=== PATIENT | female | born 1955 | race Caucasian/White ===

== ENCOUNTER 2017-04-09 05:26 | Emergency (ER) | payer OTHER ==
[~2017-04-09] VITALS: Ht 162.6 cm; Wt 62.6 kg
[2017-04-09] MEDS ORDERED: MONTELUKAST SOD10 M1 PO (06:05)
[2017-04-09] MEDS ORDERED: ZYRTEC10 M6 PO (06:06)
[2017-04-09] MEDS ORDERED: NEXIUM40 M1 PO (06:06)
[2017-04-09] MEDS ORDERED: PROAIR HFA8.5 GM INH (06:06)
--- NOTE | 2017-04-09 06:06 | ED GI/GU/ABDOMINAL COMPLAINT ---
See Addendum History of Present Illness General Chief Complaint: General Adult Stated Complaint: "PER PT I THINK I HAVE C DIFF" Source: patient Exam Limitations: no limitations Vital Signs & Intake/Output Vital Signs & Intake/Output Vital Signs Date Time Temp Pulse Resp B/P B/P Pulse O2 O2 Flow FiO2 Mean Ox Delivery Rate 04/09 0816 97.0 04/09 0754 97.0 04/09 0609 Room Air 04/09 0601 97.0 88 18 137/81 97 Room Air Allergies Coded Allergies: Penicillins (Intermediate, HIVES 04/09/17) Sulfa (Sulfonamide Antibiotics) (Intermediate, HIVES 04/09/17) cephalexin (From KEFLEX) (Intermediate, HIVES 04/09/17) epinephrine (Intermediate, HIGH HEARTRATR 04/09/17) erythromycin base (Intermediate, VOMITTING 04/09/17) latex (Intermediate, LOVE SKIN 04/09/17) codeine (Mild, INSOMNIA 04/09/17) levofloxacin (From LEVAQUIN) (Mild, GI UPSET 04/09/17) moxifloxacin (From AVELOX) (Mild, STOMACH PAINS 04/09/17) Triage Note: TRIAGE: PATIENT TO ER FROM HOME W/ GENERALIZED ABD CRAMPING X 3 DAYS W/ DIARRHEA, DENIES ANY RECENT ABX. PATIENT DENIES ANY N/V. STOOL SPECIMEN OBTAINED IN TRIAGE. Triage Nurses Notes Reviewed? yes ? n Is pt currently ? No Onset: Gradual Duration: day(s):, getting worse Timing: recent history Quality/Severity: cramping Location: epigastric, generalized abdomen Radiation: no radiation Activities at Onset: none Modifying Factors: Worsens With: defecating. Associated Symptoms: abdominal pain, diarrhea, nausea/vomiting HPI: 61 yo woman in prior good health, presents with 3-4 day history of copious watery diarrhea. "It was like I did a bowel clean out... the stool just keeps coming out." She notes nausea, but no diarrhea. "It feels just like when I had c.diff 20 years ago." She notes no fever, chills, vomiting, chest pain, dysuria, chest pain. She is otherwise well. (MANAV ROBIN,GOLDEN Delatorre) Reconcile Medications Albuterol Sulfate (Proair Hfa) 90 MCG HFA.AER.AD 2 PUF INH Q4-6 PRN PRN SOB ( Reported) Cetirizine HCl (Zyrtec) 10 MG CAPSULE 10 MG PO DAILY (Reported) Esomeprazole (Nexium) 40 MG CAPSULE.DR 20 MG PO DAILY PRN GERD (Reported) Metronidazole (Flagyl) 250 MG TABLET 1 TAB PO TID COLITIS Montelukast Sodium 10 MG TABLET 1 TAB PO DAILY (Reported) Rosuvastatin Calcium (Crestor) 20 MG TABLET 1 TAB PO DAILY CHOLESTEROL ( Reported) (ADELIA ROBIN,RADHA) Past History Travel History Traveled to [place] past 21 day No Medical History Any Pertinent Medical History? 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 No (MANAV ROBIN,GOLDEN Delatorre) Review of Systems Review of Systems Constitutional: Reports: no symptoms. EENTM: Reports: no symptoms. Respiratory: Reports: no symptoms. Cardiovascular: Reports: no symptoms. GI: Reports: no symptoms. Genitourinary: Reports: no symptoms. Musculoskeletal: Reports: no symptoms. Skin: Reports: no symptoms. Neurological/Psychological: Reports: no symptoms. Hematologic/Endocrine: Reports: no symptoms. Immunologic/Allergic: Reports: no symptoms. All Other Systems: Reviewed and Negative (MANAV ROBIN,GOLDEN Delatorre) Physical Exam Physical Exam General Appearance: well developed/nourished, mild distress Head: atraumatic, normal appearance Eyes: Bilateral: normal appearance. Ears, Nose, Throat, Mouth: hearing grossly normal Neck: normal inspection, supple, full range of motion, normal alignment Respiratory: normal breath sounds, chest non-tender, no respiratory distress, quiet respiration, lungs clear Cardiovascular: regular rate/rhythm Gastrointestinal: normal bowel sounds, soft, mild mid epigastric and ruq abdominal tenderness to palpation. Back: normal inspection, normal range of motion Extremities: normal range of motion Neurologic/Psych: no motor/sensory deficits, awake, alert, oriented x 3 Skin: intact, normal color, warm/dry Core Measures ACS in differential dx? No Severe Sepsis Present: No Septic Shock Present: No (GOLDEN EM MD) Progress Differential Diagnosis: appendicitis, cholecystitis, diverticulitis, gastritis, hepatitis Plan of Care: Orders Procedure Date/time Status LACTIC ACID 04/09 921 Active TROPONIN LEVEL 04/09 621 Complete LIPASE 04/09 621 Complete LACTIC ACID 04/09 621 Complete HEPATIC FUNCTION PANEL 04/09 621 Complete CBC WITHOUT DIFFERENTIAL 04/09 621 Complete BASIC METABOLIC PANEL 04/09 621 Complete AMYLASE 04/09 621 Complete EKG 04/09 621 Active CULTURE,STOOL 04/09 606 Active C.DIFFICILE 04/09 606 Active Laboratory Tests 04/09/17 0632: Anion Gap 8, Estimated GFR > 60, BUN/Creatinine Ratio 11.4, Glucose 100 H, Lactic Acid 1.0, Calcium 9.5, Total Bilirubin 0.4, Direct Bilirubin 0.2, AST 35, ALT 53 H, Alkaline Phosphatase 72, Troponin I 0.04, Total Protein 6.6, Albumin 3.8, Amylase 42, Lipase 51, CBC w Diff MAN DIFF ORDERED, RBC 4.63, MCV 87.3, MCH 28.7, RDW 13.0, MPV 7.7, Segmented Neutrophils 46, Band Neutrophils 2, Lymphocytes 30, Monocytes 19 H, Eosinophils 3, Platelet Estimate ADEQUATE, Hypochromic-Microcytic 1+, Poikilocytosis 1+, Ovalocytes 1+, PUBS MCHC 32.9 L, Fld Total RBCs Counted 100 Microbiology 04/09 623 STOOL: Clostridium difficile Toxin A & B - RECD 04/09 623 STOOL: Stool Culture - RECD 04/09/2017 8:33:13 AM CAT scan is consistent with colitis. Patient has submitted a stool sample. She is feeling much better after IV fluids and IV Tylenol. No episodes of blood or mucus in stool. History of C. difficile 20 years ago. We will start her on Flagyl and await culture results. She will follow-up with her doctor in the office and instructed to return to the ER if worse. (RADHA DELVALLE MD) Initial ED EKG: pending Hand-Off Endorsed To: RADHA DELVALLE MD Endorsed Time: 0700 Pending: CT, EKG, labs (GOLDEN EM MD) Diagnostic Imaging: Viewed by Me: CT Scan. Discussed w/RAD: CT Scan. Radiology Impression: PATIENT: KORINA MARKHAM PRESENT AGE: 61 PATIENT ACCOUNT NO: [id number] : 53 LOCATION: [facility] ORDERING PHYSICIAN: GOLDEN EM MD SERVICE DATE: 04/09/17 EXAM TYPE: CAT - CT ABD & PELVIS W/O IV CONTRAS EXAMINATION: CT ABDOMEN AND PELVIS WITHOUT CONTRAST CLINICAL INFORMATION: Abdominal pain, query colitis. COMPARISON: None TECHNIQUE: Multidetector volumetric imaging was performed from the superior aspect of the liver through the pubic symphysis. Sagittal and coronal reformatted images were obtained on the technologist's workstation. DLP: 268.27 mGy-cm FINDINGS: LUNG BASES: The visualized lung bases are unremarkable. LIVER, GALLBLADDER, AND BILIARY TREE: The liver is normal in size, shape, and attenuation. No focal hepatic lesion or biliary ductal dilatation is present. The gallbladder is unremarkable with no evidence of radiopaque gallstones, gallbladder wall thickening, or obvious pericholecystic inflammatory changes. PANCREAS: Unremarkable. SPLEEN: Unremarkable. ADRENAL GLANDS: Unremarkable. KIDNEYS AND URETERS: The kidneys are normal in size, shape, and attenuation. No hydronephrosis, hydroureter, or calculi seen. No perinephric stranding. BLADDER: Unremarkable. GASTROINTESTINAL TRACT: Colonic wall thickening and mild pericolonic soft tissue stranding is seen most notable in the ascending colon, hepatic flexure, transverse colon, splenic flexure and descending colon. Less appreciable changes are seen in the rectosigmoid colon. No evidence of extraluminal air or abscess or obvious perianal disease. Assessment slightly limited by the lack of intravenous contrast. The appendix is not well-defined but there are no changes to suggest appendicitis. There appears to be a second/ third portion duodenal diverticulum. This is difficult to evaluate without oral contrast. ABDOMINAL WALL: No significant hernia is appreciated. LYMPH NODES: Normal. Small normal-sized mesenteric lymph nodes are demonstrated. VASCULAR: Evaluation is limited by the lack of intravenous contrast. There is vascular calcification from atherosclerotic change. No evidence of aneurysm. PELVIC VISCERA: The uterus and adnexa are unremarkable. OSSEOUS STRUCTURES: Unremarkable. IMPRESSION: 1. Mild prominence of the colonic wall with pericolonic soft tissue stranding is compatible with the clinical history of colitis. This is difficult to evaluate without intravenous contrast. No evidence of pericolonic fluid collections or extraluminal gas. 2. Probable incidental duodenal diverticulum difficult to evaluate without oral contrast. DICTATED BY: ANTHONY BENAVIDES MD DATE/TIME DICTATED:04/09/17711 CAR DETAILER:QI DATE/TIME TRANSCRIBED:04/09/17711 CONFIDENTIAL, DO NOT COPY WITHOUT APPROPRIATE AUTHORIZATION. <Electronically signed in Other Vendor System> SIGNED BY: ANTHONY BENAVIDES MD 04/09/17723 (RADHA DELVALLE MD) Departure Departure Condition: Stable Referrals: MICHAEL ROBIN,XAUN Somers (PCP/Family) Departure Forms: Customer Survey General Discharge Information (MANAV ROBIN,GOLDEN Delatorre) Departure Time of Disposition: 830 Disposition: HOME OR SELF CARE Clinical Impression Primary Impression: Colitis Additional Instructions: Please take the Flagyl as directed. Prescription is at [facility] in [place]. Follow up with Dr. Chris in the office. Return to the ER for any changing or worsening symptoms specifically abdominal pain fever or chills. He will get a call back for any positive cultures. Prescriptions: Current Visit Scripts Metronidazole (Flagyl) 1 TAB PO TID #30 TAB (ADELIA ROBIN,RADHA)
[2017-04-09] MEDS ORDERED: CRESTOR20 M2 PO (06:07)
[2017-04-09 06:41] LABS: HEMATOCRIT 40.4 % (37-47); MEAN CORPUSCULAR HGB 28.7 PG (27.0-31.0); MEAN CORPUSCULAR HGB CONC 32.9 G/DL (33.0-37.0); MEAN CORPUSCULAR VOLUME 87.3 FL (81.0-99.0); MEAN PLATELET VOLUME 7.7 FL (7.4-10.4); PLATELET COUNT 196 /CUMM (130-400); RED BLOOD CELL CT 4.63 /CUMM (4.20-5.40); WHITE BLOOD CELL COUNT 5.3 /CUMM (4.8-10.8)
--- NOTE | 2017-04-09 07:24 | CT SCAN REPORT ---
EXAMINATION: CT ABDOMEN AND PELVIS WITHOUT CONTRAST CLINICAL INFORMATION: Abdominal pain, query colitis. COMPARISON: None TECHNIQUE: Multidetector volumetric imaging was performed from the superior aspect of the liver through the pubic symphysis. Sagittal and coronal reformatted images were obtained on the technologist's workstation. DLP: 268.27 mGy-cm FINDINGS: LUNG BASES: The visualized lung bases are unremarkable. LIVER, GALLBLADDER, AND BILIARY TREE: The liver is normal in size, shape, and attenuation. No focal hepatic lesion or biliary ductal dilatation is present. The gallbladder is unremarkable with no evidence of radiopaque gallstones, gallbladder wall thickening, or obvious pericholecystic inflammatory changes. PANCREAS: Unremarkable. SPLEEN: Unremarkable. ADRENAL GLANDS: Unremarkable. KIDNEYS AND URETERS: The kidneys are normal in size, shape, and attenuation. No hydronephrosis, hydroureter, or calculi seen. No perinephric stranding. BLADDER: Unremarkable. GASTROINTESTINAL TRACT: Colonic wall thickening and mild pericolonic soft tissue stranding is seen most notable in the ascending colon, hepatic flexure, transverse colon, splenic flexure and descending colon. Less appreciable changes are seen in the rectosigmoid colon. No evidence of extraluminal air or abscess or obvious perianal disease. Assessment slightly limited by the lack of intravenous contrast. The appendix is not well-defined but there are no changes to suggest appendicitis. There appears to be a second/third portion duodenal diverticulum. This is difficult to evaluate without oral contrast. ABDOMINAL WALL: No significant hernia is appreciated. LYMPH NODES: Normal. Small normal-sized mesenteric lymph nodes are demonstrated. VASCULAR: Evaluation is limited by the lack of intravenous contrast. There is vascular calcification from atherosclerotic change. No evidence of aneurysm. PELVIC VISCERA: The uterus and adnexa are unremarkable. OSSEOUS STRUCTURES: Unremarkable. IMPRESSION: 1. Mild prominence of the colonic wall with pericolonic soft tissue stranding is compatible with the clinical history of colitis. This is difficult to evaluate without intravenous contrast. No evidence of pericolonic fluid collections or extraluminal gas. 2. Probable incidental duodenal diverticulum difficult to evaluate without oral contrast.
[2017-04-09] MEDS ORDERED: FLAGYL250 M1 PO (08:32)
[2017-04-09 08:39] VITALS: BP 121/77
[2017-04-11] MEDS ORDERED: ZITHROMAX500 M2 PO (11:31)
== END 2017-04-09 08:40 ==
LOC: ERH 05:26
PROVIDERS: Pediatrics
DX: K52.9 Noninfective gastroenteritis and colitis, unspecified (principal)
CPT/HCPCS: 74176; 87045; 93005; 93010; 96361; 96365; 96375; J0131; J2405